=== PATIENT | male | born 1990 | race Two or more races ===

== ENCOUNTER 2018-07-16 23:53 | Emergency (ER) | payer SELFPAY ==
[~2018-07-16] VITALS: Ht 200.7 cm; Wt 145.6 kg
[2018-07-17] MEDS ORDERED: EPINEPHrine HCL 1 MG/10 ML SYRG IV ONE ×3 (00:01→16:34)
[2018-07-17] MEDS ORDERED: SODIUM BICARBONATE 8.4% INJ 50ML SYRINGE IV ONE ×2 (00:01→16:34)
[2018-07-17] MEDS ORDERED: CALCIUM CHLOR(10%) 100MG/ML 10ML SYRINGE IV ONE ×2 (00:01→15:57)
[2018-07-17] MEDS ORDERED: SODIUM CHLORIDE 0.9% 1,000 ML IV ONE ×2 (00:08→08:45)
[2018-07-17] MEDS ORDERED: ONDANSETRON HCL 4 MG/2 ML VIAL IV ONE ×2 (00:15→02:45)
[2018-07-17 00:23] LABS: Eosinophils # (auto) 0 uL; Hemoglobin 19.9 g/dL (13.5-17.5); Lymphocytes # (auto) 0.6 uL
[2018-07-17 00:25] LABS: Basophils # (auto) 0.1 uL; Basophils % (auto) 0.4 % (0.0-2.0); Lymphocytes % (auto) 3.3 % (10.0-50.0); Mean Corpuscular Hemoglobin 28.6 pg (28.0-32.0); Mean Corpuscular Hgb Conc. 33.1 g/dL (32.0-36.0); Mean Corpuscular Volume 86.4 fL (80.0-100.0); Monocytes % (auto) 5.5 % (0.0-12.0); Neutrophils # (auto) 17.4 uL; Neutrophils % (auto) 90.8 % (37.0-80.0); Nucleated Red Blood Cells % 0.2 %; Platelet Count (auto) 367 10^3/uL (140-450); Red Blood Cells 6.97 10^6/uL (4.5-5.90); Red Cell Distribution Width 13.7 % (11.8-14.3); White Blood Cell 19.2 10^3/uL (4.4-10.8)
[2018-07-17 00:33] LABS: Hematocrit 60.2 % (41.0-53.0)
[2018-07-17 00:44] LABS: BUN/Creatinine Ratio 18.5; Bilirubin, Total 1.4 mg/dL (0.2-1.0); Calcium 11.7 mg/dL (8.5-10.1); Potassium 4.1 mmol/L (3.5-5.1); Total Protein 9.3 g/dL (6.4-8.2)
[2018-07-17] MEDS ORDERED: InsuLIN REG 1unit/0.01ml Soln (100units/ml) IV ONE ×3 (01:00→08:45)
[2018-07-17] MEDS ORDERED: SODIUM CHLORIDE 0.9% 3,000 ML IV ONE (01:15)
[2018-07-17] MEDS ORDERED: SODIUM CHLORIDE 0.9% IV ONE (01:15)
[2018-07-17] MEDS ORDERED: SODIUM BICARBONATE 8.4 % INJ 50ML VIAL IV ONE ×4 (01:15→05:00)
[2018-07-17] MEDS ORDERED: InsuLIN R (HUMAN) 100 UNITS in SODIUM CHL 0.9% 99 ML IV SCH ×5 (01:18→08:36)
[2018-07-17] MEDS ORDERED: DEXTROSE (50%) 50ML SYRG IV PRN (01:30)
[2018-07-17] MEDS: ACCU-CHEK COMFORT CURVE STRIP VI SCH ×9 (01:30→13:38)
[2018-07-17 02:02] LABS: Lactic Acid w/Reflex 2.9 mmol/L (0.4-2.0)
[2018-07-17 02:29] LABS: Urine Bacteria FEW /hpf (None Seen); Urine Blood 2+ /uL (Negative); Urine Hyaline Cast FEW /lpf (0 - 2); Urine Specific Gravity 1.022 (1.001-1.035); Urine WBC <1 /hpf (0 - 3)
[2018-07-17] MEDS ORDERED: LORazepam 2MG/ML-1ML VIAL IV ONE ×2 (02:45→03:45)
[2018-07-17] MEDS ORDERED: ETOMIDATE (2MG/ML) 20ML VIAL IV ONE ×2 (03:42→03:45)
[2018-07-17] MEDS ORDERED: SUCCINYLCHOLINE CHLORIDE 20 MG/ML 10ML VIAL IV ONE ×2 (03:43→03:45)
[2018-07-17] MEDS: MIDAZOLAM DRIP 50 mg/50mL 50 ML IV SCH ×4 (03:43→11:10)
[2018-07-17] MEDS ORDERED: PROPOFOL 10 MG/ML 20 ML IV ONE (03:45)
[2018-07-17] MEDS ORDERED: SODIUM CHL 3% 500 ML IV ONE (03:45)
[2018-07-17] MEDS ORDERED: PROPOFOL 100 ML IV ONE (03:48)
[2018-07-17] MEDS: PROPOFOL 100 ML IV SCH ×3 (03:50→08:24)
[2018-07-17 05:09] LABS: Albumin 2.7 g/dL (3.4-5.0); Calcium 9.5 mg/dL (8.5-10.1); Potassium 4.5 mmol/L (3.5-5.1)
[2018-07-17] MEDS ORDERED: PANTOPRAZOLE 40 MG/10 ML VIAL IV ONE ×2 (05:15→05:58)
[2018-07-17] MEDS ORDERED: PANTOPRAZOLE 80 MG in SODIUM CHL 0.9% 60 ML IV ONE (05:15)
[2018-07-17] MEDS ORDERED: OCTREOTIDE ACETATE 500 MCG in SODIUM CHL 0.9% 99 ML IV SCH (05:15)
[2018-07-17] MEDS ORDERED: OCTREOTIDE ACETATE 100 MCG in SODIUM CHL 0.9% 50 ML IV ONE (05:15)
[2018-07-17] MEDS ORDERED: LEVOFLOXACIN 500MG 100 ML IV ONE (05:15)
[2018-07-17 05:17] LABS: BUN/Creatinine Ratio 22.2; Bilirubin, Total 1.2 mg/dL (0.2-1.0); Total Protein 6.7 g/dL (6.4-8.2)
[2018-07-17] MEDS ORDERED: OCTREOTIDE ACETATE 500 MCG/ML VL ONE (05:39)
[2018-07-17] MEDS ORDERED: OCTREOTIDE ACETATE 100 MCG/ML VL ONE (05:39)
[2018-07-17 06:30] VITALS: BP 85/49
[2018-07-17] MEDS ORDERED: NOREPINEPHRINE 8 MG/250ML KIT 250 ML IV ONE (06:41)
[2018-07-17] MEDS ORDERED: NOREPINEPHRINE 8 MG/250ML KIT 250 ML IV SCH (06:45)
[2018-07-17 07:48] VITALS: BP 96/71
[2018-07-17 07:50] LABS: Alcohol, Urine < 3.0 mg/dL (0-5); Amphetamine Screen, Urine NEGATIVE (NEGATIVE); Barbiturate Scree,Urine NEGATIVE (NEGATIVE); Benzodiazephine Screen, Urine NEGATIVE (NEGATIVE); Cannabinoid Screen, Urine NEGATIVE (NEGATIVE); Cocaine Screen, Urine NEGATIVE (NEGATIVE); Opiate Scree,Urine NEGATIVE (NEGATIVE); Phencyclidine Screen, Urine NEGATIVE (NEGATIVE)
[2018-07-17] MEDS ORDERED: fentaNYL Drip 2500mCg/250mlNS 250 ML IV SCH (08:36)
[2018-07-17] MEDS ORDERED: NITROGLYCERIN 0.4 MG SL TAB SL PRN (08:45)
[2018-07-17] MEDS ORDERED: MORPHINE SULFATE 4 MG/ML SYR/VIAL IV PRN (08:45)
[2018-07-17] MEDS ORDERED: cefTRIAXone 1GM/50ML D5W 50 ML IV SCH (09:00)
[2018-07-17] MEDS ORDERED: SODIUM BICARBONATE 50ML VIAL 50 ML in SOD CHL 0.45% 1,000 ML IV SCH (09:15)
[2018-07-17 09:44] VITALS: BP 96/71
[2018-07-17 10:03] LABS: Magnesium 3.5 mg/dL (1.6-2.6); Phosphorus 6.7 mg/dL (2.5-4.90)
[2018-07-17] MEDS ORDERED: ENOXAPARIN SOD 40 MG/0.4 ML SYRINGE SC SCH (10:15)
[2018-07-17 10:40] VITALS: BP 42/27
[2018-07-17] MEDS ORDERED: ACETAMINOPHEN 650 MG RECT SUPP PR ONE (11:00)
[2018-07-17] MEDS ORDERED: EPINEPHrine HCL 1 MG/10 ML SYRG ONE (12:00)
[2018-07-17] MEDS ORDERED: metroNIDAZOLE 500MG/100ML 100 ML IV SCH (12:00)
[2018-07-17] MEDS ORDERED: SODIUM BICARBONATE 8.4% INJ 50ML SYRINGE ONE ×2 (12:00→14:21)
[2018-07-17] MEDS: PHENYLEPHRINE INJ 20 MG in SODIUM CHL 0.9% 250 ML IV SCH ×2 (12:06→14:26)
[2018-07-17 12:37] LABS: Hematocrit 40.5 % (41.0-53.0); Hemoglobin 13.2 g/dL (13.5-17.5); Mean Corpuscular Hemoglobin 28.5 pg (28.0-32.0); Mean Corpuscular Hgb Conc. 32.6 g/dL (32.0-36.0); Mean Corpuscular Volume 87.5 fL (80.0-100.0); Platelet Count (auto) 154 10^3/uL (140-450); Red Blood Cells 4.63 10^6/uL (4.5-5.90); Red Cell Distribution Width 13.2 % (11.8-14.3); White Blood Cell 14.2 10^3/uL (4.4-10.8)
[2018-07-17] MEDS ORDERED: VASOPRESSIN 50 UNITS in D5W 5% 247.5 ML IV SCH (12:45)
[2018-07-17 12:46] LABS: Basophils % (manual) 0 (0.0-2.0); Blast Cells 0; Eosinophils % (manual) 0 (0-7); Myelocytes % 0; Promyelocytes % 0; Reactive Lymphocytes 0
[2018-07-17 12:51] LABS: Potassium 3.9 mmol/L (3.5-5.1)
[2018-07-17 12:52] LABS: Lactic Acid w/Reflex 10.5 mmol/L (0.4-2.0)
[2018-07-17 13:11] LABS: Albumin 1.3 g/dL (3.4-5.0); BUN/Creatinine Ratio 13.9; Bilirubin, Total 0.8 mg/dL (0.2-1.0); Total Protein 3.3 g/dL (6.4-8.2)
[2018-07-17 13:43] LABS: Band Neutrophils % (manual) 12; Lymphocytes % (manual) 10 (10.0-50.0); Metamyelocytes % 2; Monocytes % (manual) 4 (0-12)
[2018-07-17] MEDS ORDERED: SODIUM CHLORIDE 0.9% 1,000 ML IV SCH (14:15)
[2018-07-17 14:33] VITALS: BP 54/30
== END 2018-07-17 18:39 | disposition expired ==
LOC: EDBD 23:53 → ER 07-17 → TELE 07-17 08:58 → UNDOADMIN 07-17 08:58 → TELE 07-17 11:24 → ICU WEST 07-17 11:24 → OVERFLOW 07-17 15:57 → UNDODISIN 07-17 15:58 → ER 07-17 18:39
DX: E13.10 Other specified diabetes mellitus with ketoacidosis without coma (principal); R41.82 Altered mental status, unspecified; G93.41 Metabolic encephalopathy; K85.90 Acute pancreatitis without necrosis or infection, unspecified; R16.0 Hepatomegaly, not elsewhere classified; K76.0 Fatty (change of) liver, not elsewhere classified
CPT/HCPCS: 31500; 36415; 36556; 36600; 51702; 70450; 71045; 74176; 80053; 80307; 80320; 81001; 82010; 82805; 82962; 83036; 83605; 83690; 83735; 83880; 84100; 85007; 85025; 85027; 87070; 87205; 93005; 94761; 96361; 96365; 96366; 96367; 96368; 96372; 96375; 96376; 99291; C9113; J0171; J0330; J0696; J1650; J1815; J1956; J2060; J2250; J2370; J2405; J2704; J3490; J7030; J7050; 94003; J7060